=== PATIENT | male | born 1945 | race Caucasian/White ===

== ENCOUNTER 2016-06-15 08:10 | Observation (INO) | payer MEDICARE, OTHER ==
[~2016-06-15] VITALS: Ht 177.8 cm; Wt 86.0 kg
[2016-06-15 13:27] VITALS: BP_SYST 149; RESP 16; TEMP 97.8
[2016-06-15 13:28] VITALS: Ht 177.8 cm; Wt 86.0 kg
[2016-06-15] MEDS ORDERED: DEXTROSE 50% SYRINGE 50 ML IV PRN (13:55)
[2016-06-15] MEDS ORDERED: GLUCAGON 1 MG VIAL IM PRN (13:55)
[2016-06-15 15:21] VITALS: BP_SYST 124; RESP 16; TEMP 97.5
[2016-06-15 15:52] VITALS: BP_SYST 124; RESP 16; TEMP 97.5
== END 2016-06-15 15:32 | disposition home or self-care (01) ==
LOC: ENRESERVDT → ENRESERVTM → INTOOBSV 13:06 → 5THW 13:06 → ENPENDDIS 13:06
PROVIDERS: ADMIT Internal Medicine; ATTEND Internal Medicine
DX: N13.2 Hydronephrosis with renal and ureteral calculous obstruction (principal); D72.829 Elevated white blood cell count, unspecified; N17.9 Acute kidney failure, unspecified; E11.22 Type 2 diabetes mellitus with diabetic chronic kidney disease; I12.9 Hypertensive chronic kidney disease with stage 1 through stage 4 chronic kidney disease, or unspecified chronic kidney disease; N18.9 Chronic kidney disease, unspecified; Z87.442 Personal history of urinary calculi; K21.9 Gastro-esophageal reflux disease without esophagitis; J44.9 Chronic obstructive pulmonary disease, unspecified; Z87.891 Personal history of nicotine dependence
CPT/HCPCS: 80053; 85025; 87040; G0378

== ENCOUNTER 2016-06-18 11:55 | Observation (INO) | payer MEDICARE, OTHER ==
[~2016-06-18] VITALS: Ht 180.3 cm; Wt 83.1 kg
[2016-06-18] MEDS ORDERED: DILAUDID 1 MG/ML AMP ONE ×2 (14:53→16:41)
[2016-06-18] MEDS ORDERED: ONDANSETRON 4 MG VIAL ONE ×2 (14:54→21:17)
[2016-06-18] MEDS ORDERED: SODIUM CHLORIDE 0.9% 1,000 ML ONE (18:18)
[2016-06-18] MEDS ORDERED: SALINE FLUSH 10 ML FLUSH PRN (18:45)
[2016-06-18] MEDS ORDERED: PHARMACY TO DOSE LEVAQUIN IV SCH (18:45)
[2016-06-18] MEDS ORDERED: ONDANSETRON 4 MG VIAL IV PRN (18:45)
[2016-06-18] MEDS ORDERED: MORPHINE 2 MG/ML SYR IV PRN (18:45)
[2016-06-18] MEDS ORDERED: DEXTROSE 50% SYRINGE 50 ML IV PRN (18:50)
[2016-06-18] MEDS ORDERED: GLUCAGON 1 MG VIAL IM PRN (18:50)
[2016-06-18] MEDS ORDERED: DILTIAZEM CD 120 MG CAP PO SCH (21:00)
[2016-06-18] MEDS ORDERED: TAMSULOSIN 0.4 MG CAP PO SCH (21:00)
[2016-06-18] MEDS ORDERED: MORPHINE 2 MG/ML SYR ONE (21:17)
[2016-06-18 22:01] VITALS: BP_SYST 149; BP_SYST 150; RESP 20; TEMP 97.9; Ht 180.3 cm; Wt 83.1 kg
[2016-06-18] MEDS: SODIUM CHLORIDE 0.9% 1,000 ML IV SCH (22:33)
[2016-06-18] MEDS: SALINE FLUSH 10 ML FLUSH SCH (22:33)
[2016-06-18] MEDS ORDERED: LEVOFLOXACIN 750 MG/150 ML 150 ML IV SCH (22:35)
[2016-06-18 22:57] VITALS: BP_SYST 138; RESP 16; TEMP 97.5
[2016-06-19] VITALS (15 sets, daily range): BP systolic 114–150; RESP 11–20; TEMP 97.8–98.5
[2016-06-19] MEDS: SODIUM CHLORIDE 0.9% 1,000 ML IV SCH (05:55)
[2016-06-19] MEDS ORDERED: SODIUM CHLORIDE 0.9% FLUSH BAG 500 ML IV SCH (06:00)
[2016-06-19] MEDS: SALINE FLUSH 10 ML FLUSH SCH (08:00)
[2016-06-19] MEDS ORDERED: Finasteride 5 MG TAB PO SCH (09:00)
[2016-06-19] MEDS ORDERED: LACT RINGERS 1,000 ML IV SCH (09:35)
[2016-06-19] MEDS ORDERED: NEB-ALBUTEROL 2.5 MG/3 ML INH ONE (09:35)
[2016-06-19] MEDS ORDERED: LIDOCAINE 1% BUFFERED 1 ML SYR INTRADERM PRN (09:35)
[2016-06-19] MEDS ORDERED: GLYCOPYRROLATE 0.2 MG/ML VIAL IV ONE ×2 (09:35→13:50)
[2016-06-19] MEDS ORDERED: LEVOFLOXACIN 500 MG/100 ML 100 ML IV ONE (10:15)
[2016-06-19] MEDS ORDERED: MORPHINE 4 MG/ML SYR IV PRN (11:55)
[2016-06-19] MEDS ORDERED: MEPERIDINE 25 MG/ML IV PRN (11:55)
[2016-06-19] MEDS ORDERED: MORPHINE 2 MG/ML SYR IV PRN (11:55)
[2016-06-19] MEDS ORDERED: ONDANSETRON 4 MG VIAL IV PRN (11:55)
[2016-06-19] MEDS ORDERED: DILAUDID 1 MG/ML AMP IV PRN (11:55)
[2016-06-19] MEDS ORDERED: OXYCODONE 5 MG TAB PO PRN (11:55)
[2016-06-19] MEDS ORDERED: DUONEB INH STA (13:00)
[2016-06-19] MEDS ORDERED: ROCURONIUM 50 MG VIAL IV ONE (13:50)
[2016-06-19] MEDS ORDERED: ONDANSETRON 4 MG VIAL IV PUSH ONE (13:50)
[2016-06-19] MEDS ORDERED: NEOSTIGMINE 10 MG/10 ML VIAL IV ONE (13:50)
[2016-06-19] MEDS ORDERED: FENTANYL 100 MCG/2 ML AMP IV ONE (13:50)
[2016-06-19] MEDS ORDERED: PROPOFOL 20 ML VIAL IV ONE (13:50)
== END 2016-06-19 12:53 | disposition home or self-care (01) ==
LOC: ENRESERVDT → ENRESERVTM → ER 11:55 → EMR 18:41 → ENPENDDIS 18:41 → 5THE 21:55
PROVIDERS: ADMIT Hospitalist; ATTEND Hospitalist
DX: N20.1 Calculus of ureter (principal); I71.4 Abdominal aortic aneurysm, without rupture; Z86.73 Personal history of transient ischemic attack (TIA), and cerebral infarction without residual deficits; I10 Essential (primary) hypertension; Z87.442 Personal history of urinary calculi; N40.1 Benign prostatic hyperplasia with lower urinary tract symptoms; E86.1 Hypovolemia; E11.9 Type 2 diabetes mellitus without complications; Z79.82 Long term (current) use of aspirin; Z79.02 Long term (current) use of antithrombotics/antiplatelets; Z79.4 Long term (current) use of insulin; E78.5 Hyperlipidemia, unspecified; K21.9 Gastro-esophageal reflux disease without esophagitis; Z79.51 Long term (current) use of inhaled steroids; Z87.891 Personal history of nicotine dependence
CPT/HCPCS: 36415; 52356; 74000; 74176; 76000; 80053; 81001; 82947; 85025; 87040; 87088; 88300; 88360; 94640; 96361; 96374; 96375; 96376; 99284; C1769; C1874; C1894; G0378; J1170; J2405; J2704; J3010; 94799; 99219